=== PATIENT | female | born 1985 | race African-American/Black ===

== ENCOUNTER 2025-03-06 07:14 | Emergency (ER) | payer OTHER ==
[~2025-03-06] VITALS: Ht 157.5 cm; Wt 68.0 kg
[2025-03-06 07:17] VITALS: O2SAT 99
[2025-03-06 08:23] LABS: CLARITY URINE CLOUDY (CLEAR); COLOR URINE DARK YELLOW (YELLOW); GLUCOSE URINE NEGATIVE (NEGATIVE); KETONES URINE 1+ (NEGATIVE); LEUKOCYTE ESTERASE URINE 2+ (NEGATIVE); NITRITE URINE NEGATIVE (NEGATIVE); OCCULT BLOOD URINE NEGATIVE (NEGATIVE); PH URINE 5.5 (4.5-8.0); PROTEIN URINE TRACE (NEGATIVE)
[2025-03-06 08:38] LABS: HEMATOCRIT. 47.7 % (36.0-48.0); HEMOGLOBIN. 16.1 g/dL (12.0-16.0); MEAN CORPUSCULAR HEMOGLOBIN 29.1 pg (28.0-32.0); MEAN CORPUSCULAR HGB CONC 33.9 g/dL (31.0-37.0); MEAN CORPUSCULAR VOLUME 85.8 fL (81.0-99.0); MEAN PLATELET VOLUME 9.5 fl (7.4-10.4); PLATELET 217 x1000/uL (130-400); RED BLOOD CELL COUNT 5.55 mill/uL (4.2-5.4); RED CELL DISTRIBUTION WIDTH 13.4 % (11.6-14.6); WHITE BLOOD COUNT 7.7 x1000/uL (4.5-11.0)
[2025-03-06 08:43] LABS: DIFFERENTIAL COMMENT 1
[2025-03-06 08:45] LABS: CHLORIDE 102 mEq/L (98-107); POTASSIUM 3.9 mEq/L (3.5-5.1); SODIUM 137 mEq/L (136-145)
[2025-03-06 08:46] LABS: CALCIUM 9.3 mg/dL (8.7-10.4); CARBON DIOXIDE 24 mEq/L (21-32)
[2025-03-06 08:50] LABS: MUCUS URINE 1+ /lpf (< = 2+); SQUAMOUS EPITHELIAL CELL URINE 2+ /lpf (RARE/1+)
[2025-03-06 08:51] LABS: GLUCOSE 196 mg/dL (70-105); UREA NITROGEN BLOOD 10 mg/dL (9-23)
[2025-03-06 08:53] LABS: ALANINE AMINOTRANSFERASE 170 IU/L (10-49); ALBUMIN 4.1 g/dL (3.2-4.8); ASPARTATE AMINOTRANSFERASE 229 IU/L (<34); BILIRUBIN TOTAL 3.3 mg/dL (0.1-1.0); PROTEIN TOTAL 7.4 g/dL (6.0-8.3)
[2025-03-06 08:54] LABS: BACTERIA URINE 2+; TRICHOMONAS URINE FEW
[2025-03-06 08:54] LABS: HCG SCREEN NEGATIVE
[2025-03-06 09:02] LABS: *AMPHETAMINES SCREEN URINE NEGATIVE (NEGATIVE); *BARBITURATES SCREEN URINE NEGATIVE (NEGATIVE); *BENZODIAZEPINES SCREEN URINE NEGATIVE (NEGATIVE)
[2025-03-06 09:03] LABS: *COCAINE SCREEN URINE NEGATIVE (NEGATIVE); CANNABINOID URINE SCREEN NEGATIVE (NEGATIVE); ECSTASY MDMA SCREEN URINE NEGATIVE (NEGATIVE); METHADONE URINE SCREEN NEGATIVE (NEGATIVE); OPIATES URINE SCREEN NEGATIVE (NEGATIVE); PHENCYCLIDINE URINE SCREEN NEGATIVE (NEGATIVE)
[2025-03-06 09:11] LABS: INR 0.9; PROTHROMBIN TIME 10.1 sec (9.6-11.0)
[2025-03-06] MEDS: FAMOTIDINE 20MG/2ML VIAL IV ONE (09:15)
[2025-03-06] MEDS: ONDANSETRON HCL 4MG/2ML INJ IV ONE (09:15)
[2025-03-06] MEDS: SODIUM CHLORIDE 0.9% 500 ML IV ONE (09:15)
[2025-03-06 09:20] LABS: PLATELET ESTIMATE NORMAL
[2025-03-06] MEDS: MORPHINE SULFATE 4 MG/ML INJ (FOR IV/IM USE) IV ONE (12:12)
[2025-03-06] MEDS: MORPHINE SULFATE 4 MG/ML INJ (FOR IV/IM USE) IV NR (13:20)
[2025-03-06 14:21] VITALS: BP 124/88; PULSE 77; RESP 17; TEMP 36.7; O2SAT 97
== END 2025-03-06 14:35 | disposition short-term general hospital (02) ==
LOC: ER 07:14
DX: K85.10 Biliary acute pancreatitis without necrosis or infection (principal); E11.22 Type 2 diabetes mellitus with diabetic chronic kidney disease; F32.A Depression, unspecified
CPT/HCPCS: 80076; 80305; 80048; 81003; 81025; 84703; 83690; 85025; 85610; 36415; 74176; 76705; 96361; 96374; 96375; 99291; J3490; J2405; J2270; J7040; Z7610 ×3; A4606